=== PATIENT | male | born 1950 | race Caucasian/White ===

== ENCOUNTER 2019-09-19 12:48 | Emergency (ER) | payer MEDICARE, OTHER ==
[2019-09-19] MEDS ORDERED: ONDANSETRON HCL INJ/PF 4 MG/2 ML SDV IV ONE (14:30)
--- NOTE | 2019-09-19 14:32 | ER Document Report ---
ED Medical Screen (RME) - General Chief Complaint: Flank Pain Stated Complaint: LEFT FLANK PAIN Time Seen by Provider: 09/19/19 14:26 Mode of Arrival: Medic Information source: Patient Notes: 68-year-old male presents today with complaints of left-sided flank pain. Reports he woke up at approximately 330 this morning with severe pain. Reports he could not stand sit could not get comfortable. He also vomited this morning. He felt so bad he called EMS. On the way here he received Toradol for the pain reports he is feeling better. Denies history of kidney stones. Denies fever diarrhea. Denies trauma. Denies pain with void. I have greeted and performed a rapid initial assessment of this patient. A comprehensive ED assessment and evaluation of the patient, analysis of test re sults and completion of the medical decision making process will be conducted by additional ED providers. - Related Data Allergies/Adverse Reactions: aspirin Allergy (Verified 09/19/19 14:23) Past Medical History - Social History Chew tobacco use (# tins/day): No Frequency of alcohol use: Occasional Drug Abuse: None Physical Exam - Vital signs Vitals: Temp Pulse Resp BP Pulse Ox 98.3 F 73 16 106/65 94 09/19/19 13:43 09/19/19 13:43 09/19/19 13:43 09/19/19 13:43 09/19/19 13:43 Course - Vital Signs Vital signs: Temp Pulse Resp BP Pulse Ox 98.3 F 73 16 106/65 94 09/19/19 13:43 09/19/19 13:43 09/19/19 13:43 09/19/19 13:43 09/19/19 13:43
[2019-09-19 14:51] LABS: ALBUMIN 4.5 g/dL (3.5-5.0); ALKALINE PHOSPHATASE 79 U/L (38-126); ANION GAP 13 (5-19); ASPARTATE AMINO TRANSFERASE 31 U/L (17-59); BILIRUBIN,DIRECT 0.2 mg/dL (0.0-0.4); BILIRUBIN,TOTAL 0.8 mg/dL (0.2-1.3); BLOOD UREA NITROGEN 22 mg/dL (7-20); CALCIUM 9.7 mg/dL (8.4-10.2); CARBON DIOXIDE 23 mmol/L (22-30); CHLORIDE 104 mmol/L (98-107); GLUCOSE 137 mg/dL (75-110); POTASSIUM 4.4 mmol/L (3.6-5.0); TOTAL PROTEIN 7.6 g/dL (6.3-8.2)
[2019-09-19 15:01] LABS: ABSOLUTE LYMPHOCYTES (AUTO) 0.8 10^3/uL (0.5-4.7); ABSOLUTE MONOCYTES (AUTO) 0.7 10^3/uL (0.1-1.4); ABSOLUTE NEUT (AUTO) 9.1 10^3/uL (1.7-8.2); BASOPHILS % (AUTO) 0.3 % (0-2); HEMATOCRIT 44.2 % (37.9-51.0); HEMOGLOBIN 15.1 g/dL (13.5-17.0); LYMPHOCYTES % (AUTO) 7.7 % (13-45); MEAN CORPUSCULAR HEMOGLOBIN 31.3 pg (27.0-33.4); MEAN CORPUSCULAR HGB CONC 34.1 g/dL (32.0-36.0); MEAN CORPUSCULAR VOLUME 92 fl (80-97); MONOCYTES % (AUTO) 6.9 % (3-13); PLATELET COUNT 150 10^3/uL (150-450); RED BLOOD COUNT 4.83 10^6/uL (4.35-5.55); RED CELL DISTRIBUTION WIDTH 13.7 % (11.5-14.0); SEGMENTED NEUTROPHILS % (AUTO) 85.1 % (42-78); TOTAL CELLS COUNTED % (AUTO) 100 %; WHITE BLOOD COUNT 10.7 10^3/uL (4.0-10.5)
[2019-09-19 15:16] LABS: APPEARANCE,URINE CLEAR; BILIRUBIN,URINE NEGATIVE (NEGATIVE); COLOR,URINE YELLOW; GLUCOSE, URINE NEGATIVE (NEGATIVE); KETONES,URINE NEGATIVE (NEGATIVE); LEUKOCYTE ESTERASE,URINE NEGATIVE (NEGATIVE); NITRITE,URINE NEGATIVE (NEGATIVE); PROTEIN,URINE NEGATIVE (NEGATIVE); URINE SPECIFIC GRAVITY 1.021; UROBILINOGEN,URINE NEGATIVE mg/dL (<2.0)
--- NOTE | 2019-09-19 15:41 | RADIOLOGY REPORT (SQ) ---
EXAM DESCRIPTION: CT ABD/PELVIS NO ORAL OR IV COMPLETED DATE/TIME: 09/19/2019 3:15 pm REASON FOR STUDY: left flank pain possible kidney stone COMPARISON: None. TECHNIQUE: CT scan of the abdomen and pelvis performed without intravenous or oral contrast. Images reviewed with lung, soft tissue, and bone windows. Reconstructed coronal and sagittal MPR images revi ewed. All images stored on PACS. All CT scanners at this facility use dose modulation, iterative reconstruction, and/or weight based d osing when appropriate to reduce radiation dose to as low as reasonably achievable (ALARA). [facility]: Dose Right [facility]: CareDose [facility]: Dose Right [facility]: Teradose 4D [facility]: Smart Tracab RADIATION DOSE: CT Rad equipment meets quality standard of care and radiation dose reduction techniq ues were employed. CTDIvol: 11.7 mGy. DLP: 634 mGy-cm.mGy. LIMITATIONS: None. FINDINGS: LOWER CHEST: No nodules or infiltrates. Coronary artery calcifications. NON-CONTRASTED LIVER, SPLEEN, ADRENALS: Evaluation limited by lack of IV contrast. No identified sign ificant masses. PANCREAS: No masses. No peripancreatic inflammatory changes. GALLBLADDER: No identified stones by CT criteria. No inflammatory changes to suggest cholecystitis. RIGHT KIDNEY AND URETER: No suspicious masses. Assessment limited by lack of IV contrast. No signif icant calcifications. No hydronephrosis or hydroureter. LEFT KIDNEY AND URETER: No suspicious masses. Assessment limited by lack of IV contrast. 8.5 mm jorge cification at the ureteropelvic junction. Mild upstream dilation of the urinary collecting system. Mild perinephric fat stranding. AORTA AND RETROPERITONEUM: No aneurysm. No retroperitoneal masses or adenopathy. BOWEL AND PERITONEAL CAVITY: Few scattered colonic diverticula. Large left inguinal hernia containin g fat and a loop of sigmoid colon. No bowel wall thickening or surrounding inflammatory fat strandin g. APPENDIX: Normal. PELVIS, BLADDER, AND ABDOMINAL WALL:No abnormal masses. No free fluid. Bladder normal. BONES: Mild levoconvex scoliotic curvature of the lumbar spine. Severe lower lumbar degenerative cristian nges. OTHER: No other significant finding. IMPRESSION: Mildly obstructing 8.5 mm ureterolith at the left ureteropelvic junction. Large left inguinal hernia containing fat and a loop of sigmoid colon without evidence of strangulati on. Minimal colonic diverticulosis without evidence of acute diverticulitis. COMMENT: Quality ID # [id number]: Final reports with documentation of one or more dose reduction techniques (e.g., Automated exposure control, adjustment of the mA and/or kV according to patient size, use of iterative reconstruction technique) TECHNICAL DOCUMENTATION: JOB ID: [id number] [employer]- All Rights Reserved Reading location - IP/workstation name: [email or web address]
[2019-09-19] MEDS ORDERED: NORMAL SALINE 1000 ML 1,000 ML IV ONE (18:48)
[2019-09-19] MEDS ORDERED: HYDROCODONE/ACETAMINOPHEN 5-325 MG TABLET PO ONE (18:49)
[2019-09-19] MEDS ORDERED: ONDANSETRON 4 MG TAB.RAPDIS PO ONE (18:50)
--- NOTE | 2019-09-19 18:57 | ER Document Report ---
ED General - General Chief Complaint: Flank Pain Stated Complaint: LEFT FLANK PAIN Time Seen by Provider: 09/19/19 14:26 Mode of Arrival: Medic - HPI Notes: Patient is a 68-year-old male who presents to the emergency department for evaluation of left flank pain. It started about 3:00 in the morning. It woke him from sleep. He describes it as a "discomfort" at this time, states it was worse earlier. He did have some very mild nausea but no emesis. He denies any gross hematuria. No urinary frequency. He is never had any pain like this before. No fevers or chills. - Related Data Allergies/Adverse Reactions: aspirin Allergy (Verified 09/19/19 14:23) Home Medications: Blood pressure medication, Flomax Past Medical History - General Information source: Patient - Social History Smoking Status: Never Smoker Chew tobacco use (# tins/day): No Frequency of alcohol use: Occasional Drug Abuse: None Family History: Reviewed & Not Pertinent Patient has suicidal ideation: No Patient has homicidal ideation: No - Past Medical History Cardiac Medical History: Reports: Hx Hypertension Neurological Medical History: Reports: None Renal/ Medical History: Reports: Hx Benign Prostatic Hyperplasia. Denies: Hx Kidney Stones Malignancy Medical History: Reports None Review of Systems - Review of Systems Constitutional: No symptoms reported EENT: No symptoms reported Cardiovascular: No symptoms reported Respiratory: No symptoms reported Gastrointestinal: See HPI Genitourinary: See HPI Musculoskeletal: No symptoms reported Skin: No symptoms reported Neurological/Psychological: No symptoms reported Physical Exam - Vital signs Vitals: Temp Pulse Resp BP Pulse Ox 98.3 F 73 16 106/65 94 09/19/19 13:43 09/19/19 13:43 09/19/19 13:43 09/19/19 13:43 09/19/19 13:43 - Notes Notes: Vital signs reviewed, please refer to chart. Head is normocephalic, atraumatic. Pupils equal round, reactive to light. Neck is supple without meningismus. Heart is regular rate and rhythm. Lungs are clear to auscultation bilaterally. Abdomen is soft, nontender, normoactive bowel sounds throughout. Mild CVA tenderness on the left, none on the right. Extremities without cyanosis, clubbing. Posterior calves are nontender. Peripheral pulses are equal. Skin is warm and dry. Patient is awake, alert, neurological exam is nonfocal. Course - Re-evaluation Re-evalutation: 09/19/19 18:52 Patient presents emergency department for evaluation. Laboratory investigations were obtained. He does have a mildly abnormal renal function, with a creatinine of 1.55. Patient states that he saw his primary care provider in [place] recently, was told nothing about abnormal renal function. This certainly needs followed up. A CT scan revealed an 8.5 mm UPJ stone on the left. This is likely responsible for his symptoms. It is only mildly obstructing. At this point, I do believe that outpatient follow-up would be appropriate. He has a urologist he sees in [place], patient is told that he should follow-up with him. He is feeling significantly improved after the Toradol he got in route. His pain was starting to come back, so we will give him IV fluids, Zofran, and Leckrone. I will send him home with a prescription for Leckrone, Zofran, and to go packs from the emergency department. He will be given a CD with a copy of his CT scan. Otherwise, he is to follow-up with urology as referred, return to the emergency department if he develops worsening or new concerning symptoms of any sort. - Vital Signs Vital signs: Temp Pulse Resp BP Pulse Ox 98.5 F 68 16 108/62 98 09/19/19 20:25 09/19/19 20:25 09/19/19 20:25 09/19/19 20:25 09/19/19 20:25 - Laboratory Result Diagrams: 09/19/19 12:07 09/19/19 12:07 Laboratory results interpreted by me: 09/19/19 09/19/19 12:07 12:07 WBC 10.7 H Lymph % (Auto) 7.7 L Absolute Neuts (auto) 9.1 H Seg Neutrophils % 85.1 H BUN 22 H Creatinine 1.55 H Est GFR ( Amer) 54 L Est GFR (MDRD) Non-Af 45 L Glucose 137 H - Diagnostic Test Radiology reviewed: Reports reviewed Radiology results interpreted by me: 09/19/19 19:27 Abdomen/Pelvis CT 09/19/19 14:30 IMPRESSION: Mildly obstructing 8.5 mm ureterolith at the left ureteropelvic junction. Large left inguinal hernia containing fat and a loop of sigmoid colon without evidence of strangulation. Minimal colonic diverticulosis without evidence of acute diverticulitis. Discharge - Discharge Clinical Impression: Obstruction of left ureteropelvic junction (UPJ) due to stone, Abnormal renal function Condition: Stable Disposition: HOME, SELF-CARE Instructions: Kidney Function Abnormality ([facility]), Kidney Stone ([facility]) Additional Instructions: Your creatinine was 1.55 today. This should be rechecked, followed up with your primary care provider or urologist. Stay well-hydrated. Continue your Flomax at home. Take Zofran as needed for nausea, Leckrone as needed for pain. Please watch for dizziness, drowsiness, constipation with the Leckrone. Follow-up with your urologist, see if you can be seen sooner than your appointment in September for your 8.5 mm left UPJ kidney stone. If you develop fevers, vomiting, decreased urination, or any other new or concerning symptoms, please return immediately to the emergency department for reevaluation. Prescriptions: Hydrocodone/Acetaminophen [Leckrone 5-325 mg Tablet] 1 tab PO Q6HP PRN #20 tablet PRN Reason: Pain Scale Of 5 Ondansetron [Zofran Odt 4 mg Tablet] 1 tab PO Q4H PRN #15 tab.rapdis PRN Reason: For Nausea/Vomiting
[2019-09-19] MEDS ORDERED: ONDANSETRON ODT 4 MG TAB (6 TAB/ER DISP) PO PRN (18:58)
[2019-09-19] MEDS ORDERED: HYDROCODONE/ACETAMINOPHEN 5-325 MG (6 TAB/ER DISP) PO PRN (18:59)
[2019-09-19 20:28] VITALS: BP 108/62
== END 2019-09-19 20:25 | disposition home or self-care (01) ==
LOC: ER 12:48
DX: N20.1 Calculus of ureter (principal); K40.90 Unilateral inguinal hernia, without obstruction or gangrene, not specified as recurrent; K57.30 Diverticulosis of large intestine without perforation or abscess without bleeding; R94.4 Abnormal results of kidney function studies; R11.0 Nausea; I10 Essential (primary) hypertension; Z79.899 Other long term (current) drug therapy; Z88.8 Allergy status to other drugs, medicaments and biological substances
CPT/HCPCS: 99284; 96361; 96374; 36415; 85025; 80053; 81001; 74176; A9270 ×4; J2405; J7030; S0119